=== PATIENT | male | born 1950 | race Two or more races ===

== ENCOUNTER 2019-12-08 11:13 | Outpatient (CLI) | payer OTHER ==
[~2019-12-08 11:13] MED LIST: ALTACE10 MG PO; AVAPRO300 MG PO; CARVEDILOL12.5 MG; LASIX40 MG PO; OPSUMIT10 MG PO; PENTOXIFYLLINE400 MG PO; WARFARIN SODIU7.5 MG PO
== END 2019-12-08 11:34 | disposition home or self-care (01) ==
LOC: LAB 11:13 → ADM 12-09 10:15 → CIR.AMB 12-15 07:00 → EDSTATUS 12-15 10:15 → CIR.AMB 12-15 10:15
PROVIDERS: ATTEND Orthopaedic Surgery Sports Medicine
DX: U07.1 COVID-19 (principal); Z01.811 Encounter for preprocedural respiratory examination

== ENCOUNTER 2020-01-26 05:30 | Day surgery (SDC) | payer OTHER ==
[2020-01-26] MEDS ORDERED: ULTRAM50 MG PO (11:59)
[2020-01-26] MEDS ORDERED: DUI500 PO (11:59)
== END 2020-01-26 17:27 | disposition home or self-care (01) ==
LOC: CIR.AMB 05:30
PROVIDERS: ATTEND Orthopaedic Surgery Sports Medicine
DX: M23.351 Other meniscus derangements, posterior horn of lateral meniscus, right knee (principal); M65.861 Other synovitis and tenosynovitis, right lower leg; Z20.828 Contact with and (suspected) exposure to other viral communicable diseases

== ENCOUNTER 2021-11-01 07:45 | Inpatient (IN) | payer OTHER ==
[~2021-11-01] VITALS: Ht 180.3 cm; Wt 85.7 kg
[~2021-11-01 07:45] MED LIST changes: +DUI500 PO; +ULTRAM50 MG PO
[2021-11-01] MEDS ORDERED: CARVEDILOL12.5 MG (09:07)
[2021-11-01] MEDS ORDERED: ALTACE10 MG PO (09:07)
[2021-11-01] MEDS ORDERED: AVAPRO300 MG PO (09:08)
[2021-11-01] MEDS ORDERED: LASIX40 MG PO (09:09)
[2021-11-01] MEDS ORDERED: LIPITOR40 M1 PO (09:09)
[2021-11-01] MEDS ORDERED: PENTOXIFYLLINE400 MG PO (09:10)
[2021-11-01] MEDS ORDERED: COUMADIN PO (09:11)
[2021-11-22] MEDS ORDERED: LUMIGAN2.5 M1 (08:03)
[2021-11-22] MEDS ORDERED: BRIMONIDINE-TIMO5 ML (08:03)
[2021-11-22] MEDS ORDERED: IRBESARTAN-HCT1 EAC1 (08:03)
[2021-11-22] MEDS ORDERED: SILDENAFIL20 MG (08:04)
[2021-11-22] MEDS ORDERED: DICLOFENAC SOD100 GM (08:04)
[2021-11-22] MEDS ORDERED: HYALGAN10 MG/1 ML (08:04)
[2021-11-23] MEDS ORDERED: OXYC1TAB9 PO (06:37)
[2021-11-23] MEDS ORDERED: INTEGRA PLUS C1 EACH PO (06:37)
[2021-11-23] MEDS ORDERED: BACTRIM DS TAB1 EACH PO (06:37)
== END 2021-11-23 13:10 | DRG 470 ==
LOC: SURG 11-07 07:45 → O/R 11-21 07:47 → SURG 11-21 13:44
PROVIDERS: ADMIT Orthopaedic Surgery Sports Medicine; ATTEND Orthopaedic Surgery Sports Medicine
PROC: 0SRD0J9 Replacement of Left Knee Joint with Synthetic Substitute, Cemented, Open Approach (ICD-10-PCS; principal; 2021-11-21 16:15)
PROC: 4A12X4Z Monitoring of Cardiac Electrical Activity, External Approach (ICD-10-PCS; 2021-11-22)
DX: M17.12 Unilateral primary osteoarthritis, left knee (principal); E78.49 Other hyperlipidemia; I25.10 Atherosclerotic heart disease of native coronary artery without angina pectoris; I11.9 Hypertensive heart disease without heart failure; Z95.1 Presence of aortocoronary bypass graft; Z96.652 Presence of left artificial knee joint; Z20.822 Contact with and (suspected) exposure to COVID-19

== ENCOUNTER 2021-11-21 06:08 | Outpatient (CLI) | payer OTHER ==
[~2021-11-21 06:08] MED LIST changes: +COUMADIN PO; +LIPITOR40 M1 PO
[2021-11-22] MEDS ORDERED: LUMIGAN2.5 M1 (08:03)
[2021-11-22] MEDS ORDERED: BRIMONIDINE-TIMO5 ML (08:03)
[2021-11-22] MEDS ORDERED: IRBESARTAN-HCT1 EAC1 (08:03)
[2021-11-22] MEDS ORDERED: SILDENAFIL20 MG (08:04)
[2021-11-22] MEDS ORDERED: HYALGAN10 MG/1 ML (08:04)
[2021-11-22] MEDS ORDERED: DICLOFENAC SOD100 GM (08:04)
== END 2021-11-21 06:45 | disposition home or self-care (01) ==
LOC: LAB 06:08
PROVIDERS: ATTEND Orthopaedic Surgery Sports Medicine
DX: Z01.812 Encounter for preprocedural laboratory examination (principal)